=== PATIENT | female | born 1980 | race Caucasian/White ===

== ENCOUNTER 2020-05-05 10:31 | Emergency (ER) | payer SELFPAY ==
[~2020-05-05] VITALS: Ht 157.5 cm; Wt 67.6 kg
[2020-05-05 10:32] VITALS: BP 123/80; Ht 157.5 cm; Wt 67.6 kg
== END 2020-05-05 13:04 | disposition home or self-care (01) ==
LOC: ED 10:31
DX: U07.1 COVID-19 (principal); B34.9 Viral infection, unspecified; M54.6 Pain in thoracic spine; M54.5 Low back pain; R07.89 Other chest pain
CPT/HCPCS: J1885

== ENCOUNTER 2020-05-06 19:54 | Emergency (ER) | payer SELFPAY ==
[~2020-05-06] VITALS: Ht 160 cm; Wt 70.3 kg
[2020-05-06 20:14] VITALS: Ht 160 cm; Wt 70.3 kg
[2020-05-06 22:33] VITALS: BP 131/77
== END 2020-05-06 22:34 | disposition home or self-care (01) ==
LOC: ED 19:54
DX: U07.1 COVID-19 (principal); R06.00 Dyspnea, unspecified; R06.4 Hyperventilation